=== PATIENT | male | born 1995 | race Caucasian/White ===

== ENCOUNTER 2023-06-04 00:12 | Emergency (ER) | payer SELFPAY ==
[~2023-06-04] VITALS: Ht 172.7 cm; Wt 120.0 kg
[2023-06-04 00:15] VITALS: BP 109/57; PULSE 106; RESP 16; TEMP 98.4; O2SAT 96
[2023-06-04] MEDS ORDERED: ONDANSETRON HCL 4MG/2ML INJ IM STA (01:24)
[2023-06-04] MEDS ORDERED: ACETAMINOPHEN 325MG TABLET PO STA (01:24)
[2023-06-04 02:59] LABS: BASOPHILS % 0.8 % (0.0-2.0); HEMATOCRIT. 41.7 % (42.0-52.0); HEMOGLOBIN. 14.3 g/dL (14.0-18.0); LYMPHOCYTES % 14.9 % (20.0-50.0); MEAN CORPUSCULAR HEMOGLOBIN 30.8 pg (28.0-32.0); MEAN CORPUSCULAR HGB CONC 34.3 g/dL (31.0-37.0); MEAN CORPUSCULAR VOLUME 89.6 fL (80.0-94.0); MONOCYTES % 10.3 % (2.0-8.0); PLATELET 282 x1000/uL (130-400); RED BLOOD CELL COUNT 4.65 mill/uL (4.7-6.1); RED CELL DISTRIBUTION WIDTH 16.6 % (11.6-14.6); WHITE BLOOD COUNT 10.4 x1000/uL (4.5-11.0)
[2023-06-04 03:11] LABS: CHLORIDE 115 mEq/L (98-107); INDEX HEMOLYSI 2 (1-3); INDEX ICTERIC 1 (1-4); INDEX LIPEMIC 1 (1-3); POTASSIUM 3.2 mEq/L (3.5-5.1); SODIUM 143 mEq/L (136-145)
[2023-06-04 03:22] LABS: ALANINE AMINOTRANSFERASE 162 IU/L (13-61); ALBUMIN 3.8 g/dL (3.4-5.0); ASPARTATE AMINOTRANSFERASE 145 IU/L (15-37); BILIRUBIN TOTAL 0.5 mg/dL (0.1-1.0); CALCIUM 8.1 mg/dL (8.5-10.1); CARBON DIOXIDE 21 mEq/L (21-32); CREATININE 0.8 mg/dL (0.6-1.3); ETHANOL BLOOD 257 mg/dL (-10); GLUCOSE 126 mg/dL (70-105); PROTEIN TOTAL 7.7 g/dL (6.0-8.3); UREA NITROGEN BLOOD 9 mg/dL (7-21)
[2023-06-04] MEDS ORDERED: IOHEXOL-300 100 ML BOTTLE ONE (04:41)
[2023-06-04] MEDS ORDERED: ACET-2708 MT (06:48)
[2023-06-04] MEDS ORDERED: IBUP-1525 MT (06:48)
== END 2023-06-04 07:33 | disposition home or self-care (01) ==
LOC: ER 00:26
DX: S00.93XA Contusion of unspecified part of head, initial encounter (principal); S30.1XXA Contusion of abdominal wall, initial encounter; M79.602 Pain in left arm; M54.2 Cervicalgia; Y08.89XA Assault by other specified means, initial encounter; Y93.89 Activity, other specified; Y92.89 Other specified places as the place of occurrence of the external cause; Y99.8 Other external cause status
CPT/HCPCS: 80053; 80320; 83690; 85025; 36415; 73060; 73090; 70450; 71260; 72125; 74177; 99284; Q9967; G0480